=== PATIENT | female | born 1955 | race Caucasian/White ===

== ENCOUNTER 2017-02-02 05:09 | Inpatient (IN) | payer MEDICARE ==
[~2017-02-02] VITALS: Ht 172.7 cm; Wt 106.8 kg
[~2017-02-02 05:09] MED LIST: BACL-19 PO; BUPR-86 PO; CEPH-368 PO; DIAZ5TAB PO; DIAZ5TAB4 PO; DIPH25CA61 PO; ESTR1TAB15 PO; FLUO20CA19 PO; GABA100C8 PO; HYDR2TAB13 PO; IBUP-1222 PO; LORA10TA75 PO; METH4TAB2 PO; METH750T87 PO; MORP15TA39 PO; MULT-658 PO; OXYC-229 PO; OXYC1TAB9 PO; SULF1TAB3 PO; VITA400C40 PO; testosterone PO; vitamin a PO
[2017-02-02] MEDS ORDERED: OXYC10TA6 PO (05:25)
[2017-02-02] MEDS ORDERED: SODIUM CHLORIDE FLUSH 10ML SYR IVF ONE (06:00)
[2017-02-02] MEDS ORDERED: SODIUM CHLORIDE 0.9% 1,000ML IVBOLUS ONE (06:00)
[2017-02-02] MEDS ORDERED: DIAZEPAM 5 MG TABLET PO ONE (06:00)
[2017-02-02 06:25] LABS: ACETAMINOPHEN < 2 mcg/mL (10-30); ASPARTATE AMINO TRANSFERASE 32 U/L (15-37); BLOOD UREA NITROGEN 17 mg/dL (7-18)
[2017-02-02 07:21] LABS: DAU SCREEN DISCLAIMER
[2017-02-02] MEDS ORDERED: SODIUM CHLORIDE 0.9% 1,000 ML IV SCH (10:29)
[2017-02-02] MEDS ORDERED: ACETAMINOPHEN 650 MG/20.3 ML UDC PO PRN (10:30)
[2017-02-02] MEDS ORDERED: DOCUSATE CALCIUM 240 MG CAPSULE PO PRN (10:30)
[2017-02-02] MEDS ORDERED: LORazepam 2 MG/ML, 1ML IVPush PRN (11:00)
[2017-02-02] MEDS ORDERED: KETOROLAC 30 MG/1 ML IVPush PRN (11:00)
[2017-02-02] MEDS ORDERED: OXYcodone IR 5MG TABLET PO PRN (11:00)
[2017-02-02] MEDS: ASPIRIN 81 MG TABLET EC PO SCH (11:55)
[2017-02-02] MEDS: BUPROPION 75 MG TABLET PO SCH ×2 (11:55→21:22)
[2017-02-02] MEDS: ENOXAPARIN 40 MG/0.4 ML SQ SCH (11:56)
[2017-02-02] MEDS: OXYcodone/APAP 10/325MG TABLET PO PRN ×2 (11:56→21:21)
[2017-02-02 12:24] VITALS: BP 117/84
[2017-02-02 12:46] VITALS: BP 144/85
[2017-02-02] MEDS: GABAPENTIN 300 MG CAPSULE PO SCH ×2 (16:06→21:21)
[2017-02-02] MEDS: DIAZEPAM 5 MG TABLET PO PRN (16:07)
[2017-02-02 19:47] VITALS: BP 132/72
[2017-02-02] MEDS ORDERED: BACLOFEN 10 MG TABLET PO PRN (21:00)
[2017-02-02] MEDS ORDERED: BACLOFEN 10 MG TABLET PO SCH (21:00)
[2017-02-02] MEDS: SIMVASTATIN 10 MG TABLET PO SCH (21:22)
[2017-02-03] MEDS: OXYcodone/APAP 10/325MG TABLET PO PRN ×2 (01:34→13:55)
[2017-02-03 02:24] VITALS: BP 119/73
[2017-02-03 06:14] LABS: ASPARTATE AMINO TRANSFERASE 21 U/L (15-37); BLOOD UREA NITROGEN 12 mg/dL (7-18)
[2017-02-03 06:30] VITALS: BP 132/81
[2017-02-03] MEDS ORDERED: DIAZEPAM 10 MG TABLET ONE (09:15)
[2017-02-03] MEDS: ENOXAPARIN 40 MG/0.4 ML SQ SCH (09:20)
[2017-02-03] MEDS: BUPROPION 75 MG TABLET PO SCH ×2 (09:20→21:06)
[2017-02-03] MEDS: ASPIRIN 81 MG TABLET EC PO SCH (09:20)
[2017-02-03] MEDS: GABAPENTIN 300 MG CAPSULE PO SCH ×3 (09:20→21:06)
[2017-02-03] MEDS: DIAZEPAM 5 MG TABLET PO PRN (09:21)
[2017-02-03 12:46] VITALS: BP 115/72
[2017-02-03 19:31] VITALS: BP 142/81
[2017-02-03] MEDS: SIMVASTATIN 10 MG TABLET PO SCH (21:06)
[2017-02-04 01:26] VITALS: BP 158/60
[2017-02-04 06:45] VITALS: BP 147/82
[2017-02-04] MEDS ORDERED: DIAZ5TAB4 PO (09:25)
[2017-02-04] MEDS ORDERED: BACL-19 PO (09:25)
[2017-02-04] MEDS ORDERED: OXYC-229 PO (09:25)
[2017-02-04] MEDS: ENOXAPARIN 40 MG/0.4 ML SQ SCH (10:18)
[2017-02-04] MEDS: GABAPENTIN 300 MG CAPSULE PO SCH ×3 (10:18→20:06)
[2017-02-04] MEDS: BUPROPION 75 MG TABLET PO SCH ×2 (10:18→20:06)
[2017-02-04] MEDS: ASPIRIN 81 MG TABLET EC PO SCH (10:18)
[2017-02-04 12:40] VITALS: BP 139/75
[2017-02-04 19:05] VITALS: BP 136/83
[2017-02-04] MEDS: SIMVASTATIN 10 MG TABLET PO SCH (20:06)
[2017-02-05 02:07] VITALS: BP 120/72
[2017-02-05 07:32] VITALS: BP 152/92
[2017-02-05] MEDS: BUPROPION 75 MG TABLET PO SCH (07:47)
[2017-02-05] MEDS: GABAPENTIN 300 MG CAPSULE PO SCH (07:47)
[2017-02-05] MEDS: ASPIRIN 81 MG TABLET EC PO SCH (07:47)
[2017-02-05] MEDS: ENOXAPARIN 40 MG/0.4 ML SQ SCH (07:50)
[2017-02-05] MEDS ORDERED: DIAZEPAM 10 MG TABLET ONE (10:38)
[2017-02-05] MEDS: DIAZEPAM 5 MG TABLET PO PRN (10:41)
[2017-02-05] MEDS ORDERED: FLUOXETINE 20 MG CAPSULE PO SCH (12:30)
[2017-02-05] MEDS ORDERED: BUPR75TA6 PO (13:24)
[2017-02-05] MEDS ORDERED: FLUO20CA8 PO (13:24)
[2017-02-06] MEDS ORDERED: BUPROPION 75 MG TABLET PO SCH (09:00)
== END 2017-02-05 14:57 | disposition home or self-care (01) | DRG 92 ==
LOC: ED 07:26 → EDIP 09:18 → 4EST 10:40
PROVIDERS: ADMIT Family Medicine; ATTEND Family Medicine
DX: R47.01 Aphasia (principal); F33.1 Major depressive disorder, recurrent, moderate; E44.0 Moderate protein-calorie malnutrition; M54.9 Dorsalgia, unspecified; M54.2 Cervicalgia; E66.9 Obesity, unspecified; F45.9 Somatoform disorder, unspecified; G89.29 Other chronic pain; M21.371 Foot drop, right foot; M41.9 Scoliosis, unspecified; R29.6 Repeated falls; R32 Unspecified urinary incontinence; R33.9 Retention of urine, unspecified; Z66 Do not resuscitate; Z81.8 Family history of other mental and behavioral disorders; Z68.35 Body mass index [BMI] 35.0-35.9, adult; Z82.49 Family history of ischemic heart disease and other diseases of the circulatory system; Z90.89 Acquired absence of other organs; T40.605A Adverse effect of unspecified narcotics, initial encounter
CPT/HCPCS: 36415; 70450; 70553; 71010; 72110; 80053; 80061; 80307; 80329; 81003; 84443; 85025; 85651; 86140; 93005; 93306; 93880; 96360; 96361; 96372; J1650; 92523-GN; G0480; J7030

== ENCOUNTER 2017-02-07 08:41 | Emergency (ER) | payer MEDICARE ==
[~2017-02-07] VITALS: Ht 172.7 cm; Wt 103.4 kg
[~2017-02-07 08:41] MED LIST changes: +BUPR75TA6 PO; +FLUO20CA8 PO; +OXYC10TA6 PO
[2017-02-07] MEDS ORDERED: SODIUM CHLORIDE FLUSH 10ML SYR IVF ONE (09:30)
[2017-02-07] MEDS ORDERED: MORPHINE SULFATE 4 MG/ML, 1ML IVPush PRN (09:30)
[2017-02-07] MEDS ORDERED: SODIUM CHLORIDE 0.9% 1,000ML IV ONE (09:30)
[2017-02-07] MEDS ORDERED: LORazepam 2 MG/ML, 1ML IVPush ONE (09:30)
[2017-02-07] MEDS ORDERED: ONDANSETRON 2MG/ML, 2ML IVPush ONE (09:30)
[2017-02-07] MEDS ORDERED: KETOROLAC 30 MG/1 ML IVPush ONE (09:30)
[2017-02-07 09:47] LABS: BLOOD UREA NITROGEN 18 mg/dL (7-18)
[2017-02-07] MEDS ORDERED: MORPHINE SULFATE 4 MG/ML, 1ML ONE (09:49)
[2017-02-07] MEDS ORDERED: KETOROLAC 30 MG/1 ML ONE (09:49)
[2017-02-07] MEDS ORDERED: ONDANSETRON 2MG/ML, 2ML ONE (09:49)
[2017-02-07] MEDS ORDERED: LORazepam 2 MG/ML, 1ML ONE (09:50)
[2017-02-07 10:54] VITALS: BP 158/82
== END 2017-02-07 10:58 | disposition home or self-care (01) ==
LOC: ED 10:52
DX: S39.012A Strain of muscle, fascia and tendon of lower back, initial encounter (principal); F11.23 Opioid dependence with withdrawal; X50.9XXA Other and unspecified overexertion or strenuous movements or postures, initial encounter; Y93.89 Activity, other specified; Y92.89 Other specified places as the place of occurrence of the external cause; Y99.8 Other external cause status
CPT/HCPCS: 36415; 80048; 80307; 82040; 85025; 96361; 96374; 96375; 99285; J1885; J2060; J2405; J7030

== ENCOUNTER → 2017-05-08 | Outpatient (CLI) | payer MEDICARE ==
[~2017-05-08] MED LIST changes: +GABA-826 PO; -GABA100C8 PO; -HYDR2TAB13 PO; +HYDR2TAB29 PO; +MORP-52 PO; -MORP15TA39 PO; -VITA400C40 PO; +VITA400C43 PO
[2017-05-08 16:10] LABS: HIV 1&2 ANTIBODY SCREEN Nonreactive (Nonreactive); HIV-1 p24 ANTIGEN Nonreactive (Nonreactive)
[2017-05-08 20:00] LABS: HEPATITIS C VIRUS ANTIBODY Nonreactive (Nonreactive)
== END | disposition home or self-care (01) ==
LOC: CFH 11:42
PROVIDERS: ATTEND Student in an Organized Health Care Education/Training Program
DX: Z11.3 Encounter for screening for infections with a predominantly sexual mode of transmission (principal)
CPT/HCPCS: 36415; 86592; 86703; 86803; 87340; 87899; G0435

== ENCOUNTER → 2017-06-30 | Outpatient (CLI) | payer MEDICARE, MEDICAID ==
[~2017-06-30] MED LIST changes: -OXYC-229 PO; +OXYC-307 PO; +SULF-169 PO; -SULF1TAB3 PO
== END | disposition home or self-care (01) ==
LOC: CFH 13:52
PROVIDERS: ATTEND Neurological Surgery
DX: M51.36 Other intervertebral disc degeneration, lumbar region (principal); M47.896 Other spondylosis, lumbar region; M41.86 Other forms of scoliosis, lumbar region; M48.06 Spinal stenosis, lumbar region; Z98.1 Arthrodesis status; Z98.890 Other specified postprocedural states
CPT/HCPCS: 72100

== ENCOUNTER 2017-07-18 12:22 | Emergency (ER) | payer MEDICARE, MEDICAID ==
[~2017-07-18] VITALS: Ht 172.7 cm; Wt 105.8 kg
[2017-07-18] MEDS ORDERED: ONDANSETRON ODT 4 MG ONE (13:11)
[2017-07-18] MEDS ORDERED: HYDROmorphone 1 MG/ML, 1ML ONE (13:11)
[2017-07-18] MEDS ORDERED: ONDANSETRON ODT 4 MG PO ONE (13:30)
[2017-07-18] MEDS ORDERED: HYDROmorphone 1 MG/ML, 1ML IM ONE (13:30)
[2017-07-18 14:24] LABS: HEMATOCRIT 42.9 % (34.6-47.8); HEMOGLOBIN 14.5 g/dL (11.7-16.4); WHITE BLOOD COUNT 6.4 x10^3/uL (3.4-10)
[2017-07-18 14:33] LABS: BLOOD UREA NITROGEN 17 mg/dL (7-18)
[2017-07-18 14:44] LABS: ASPARTATE AMINO TRANSFERASE 51 U/L (15-37)
[2017-07-18 15:16] VITALS: BP 168/80
[2017-07-18] MEDS ORDERED: METHYLNALTREXONE 12 MG/0.6 ML SQ ONE (15:30)
== END 2017-07-18 15:56 | disposition home or self-care (01) ==
LOC: ED 12:46
DX: K59.00 Constipation, unspecified (principal)
CPT/HCPCS: 36415; 76700; 80053; 83690; 85025; 96372; 99285; J1170; Q0162

== ENCOUNTER → 2017-10-23 | Outpatient (CLI) | payer MEDICARE, MEDICAID | LOC: CFH 12:19 | PROVIDERS: ATTEND Nurse Practitioner | DX: Z02.9 Encounter for administrative examinations, unspecified (principal) ==

== ENCOUNTER → 2017-10-27 | Outpatient (CLI) | payer MEDICARE, MEDICAID | END | disposition home or self-care (01) | LOC: CFH 11:18 | PROVIDERS: ATTEND Nurse Practitioner | DX: M25.771 Osteophyte, right ankle (principal); M25.472 Effusion, left ankle ==

== ENCOUNTER 2018-02-27 06:19 | Emergency (ER) | payer MEDICARE, MEDICAID ==
[~2018-02-27] VITALS: Ht 175.3 cm; Wt 105.8 kg
[2018-02-27] MEDS ORDERED: KETOROLAC 30 MG/1 ML ONE (06:53)
[2018-02-27] MEDS ORDERED: MORPHINE SULFATE 4 MG/ML, 1ML ONE (06:54)
[2018-02-27 07:00] LABS: CULTURE INDICATED? YES; MICROSCOPIC INDICATED
[2018-02-27] MEDS ORDERED: KETOROLAC 30 MG/1 ML IVPush ONE (07:00)
[2018-02-27] MEDS ORDERED: SODIUM CHLORIDE FLUSH 10ML SYR IVF ONE (07:00)
[2018-02-27] MEDS ORDERED: MORPHINE SULFATE 4 MG/ML, 1ML IVPush PRN (07:00)
[2018-02-27 07:37] LABS: BASOPHILS # (AUTO) 0.03 x10^3/uL (0-0.1); BASOPHILS % (AUTO) 1 % (0-1); EOSINOPHILS # (AUTO) 0.08 x10^3/uL (0-0.4); EOSINOPHILS % (AUTO) 2 % (1-7); LYMPHOCYTES # (AUTO) 1.21 x10^3/uL (1-3.4); LYMPHOCYTES % (AUTO) 28 % (22-44); MD NO; MEAN CORPUSCULAR VOLUME 88.1 fL (80-100); MEAN PLATELET VOLUME 7.5 fL (7.4-10.4); MONOCYTES # (AUTO) 0.31 x10^3/uL (0.2-0.8); MONOCYTES % (AUTO) 7 % (2-9); NEUTROPHILS # (AUTO) 2.77 x10^3/uL (1.8-6.8); NEUTROPHILS % (AUTO) 63 % (42-75); PLATELET COUNT 214 x10^3/uL (130-400); RED BLOOD COUNT 4.94 x10^6/uL (3.82-5.3); RED CELL DISTRIBUTION WIDTH 12.9 % (9.6-15.2)
[2018-02-27 07:50] LABS: ALANINE AMINOTRANSFERASE 26 U/L (12-78); ALBUMIN 3.5 g/dL (3.4-5.0); ANION GAP 8 mmol/L (5-15); CALCIUM 8.7 mg/dL (8.5-10.1); CHLORIDE 111 mmol/L (98-107); CREATININE 1.03 mg/dL (0.55-1.02)
[2018-02-27 07:52] LABS: ALKALINE PHOSPHATASE 93 U/L (45-117); BILIRUBIN,TOTAL 0.4 mg/dL (0.2-1.0); TOTAL PROTEIN 6.5 g/dL (6.4-8.2)
[2018-02-27 09:42] VITALS: BP 145/67
[2018-02-27] MEDS ORDERED: OXYcodone/APAP 10/325MG TABLET PO ONE (10:00)
[2018-02-27] MEDS ORDERED: OXYcodone/APAP 10/325MG TABLET ONE (10:10)
== END 2018-02-27 10:29 | disposition home or self-care (01) ==
LOC: ED 09:26
DX: R10.32 Left lower quadrant pain (principal); I11.9 Hypertensive heart disease without heart failure; M19.90 Unspecified osteoarthritis, unspecified site
CPT/HCPCS: 36415; 74176; 80053; 81001; 83690; 85025; 87086; 96374; 96375; 99285; J1885

== ENCOUNTER 2018-03-07 08:11 | Emergency (ER) | payer MEDICARE, MEDICAID ==
[~2018-03-07] VITALS: Ht 175.3 cm; Wt 106.2 kg
[2018-03-07 08:17] VITALS: BP 155/93
[2018-03-07] MEDS ORDERED: DIAZEPAM 5 MG TABLET ONE (09:16)
[2018-03-07] MEDS ORDERED: KETOROLAC 30 MG/1 ML ONE (09:16)
[2018-03-07] MEDS ORDERED: DIAZEPAM 5 MG TABLET PO ONE (09:30)
[2018-03-07] MEDS ORDERED: KETOROLAC 30 MG/1 ML IM ONE (09:30)
== END 2018-03-07 09:56 | disposition home or self-care (01) ==
LOC: ED 09:30
DX: S50.11XA Contusion of right forearm, initial encounter (principal); S80.01XA Contusion of right knee, initial encounter; M51.36 Other intervertebral disc degeneration, lumbar region; G89.29 Other chronic pain; W01.0XXA Fall on same level from slipping, tripping and stumbling without subsequent striking against object, initial encounter; Y93.01 Activity, walking, marching and hiking; Y92.098 Other place in other non-institutional residence as the place of occurrence of the external cause; Y99.8 Other external cause status
CPT/HCPCS: 72110; 73090; 73564; 96372; 99284; J1885

== ENCOUNTER 2019-01-17 10:25 | Emergency (ER) | payer MEDICARE, MEDICAID ==
[~2019-01-17] VITALS: Ht 175.3 cm; Wt 114.2 kg
[~2019-01-17 10:25] MED LIST changes: +OXYC-432 PO; -OXYC1TAB9 PO
[2019-01-17 10:40] VITALS: BP 158/83
--- NOTE | 2019-01-17 10:52 | NUR ---
to room 09
[2019-01-17] MEDS ORDERED: DEXAMETHASONE 4 MG/ML, 5ML ONE (11:22)
[2019-01-17] MEDS ORDERED: DEXAMETHASONE 4 MG/ML, 1ML PO ONE (11:30)
== END 2019-01-17 12:17 | disposition home or self-care (01) ==
LOC: ED 10:51
DX: B34.9 Viral infection, unspecified (principal); I11.9 Hypertensive heart disease without heart failure; M19.90 Unspecified osteoarthritis, unspecified site; M54.9 Dorsalgia, unspecified; G89.29 Other chronic pain
CPT/HCPCS: 71046; 87081; 87880; 99284; J1100

== ENCOUNTER 2019-04-16 15:30 | Emergency (ER) | payer MEDICARE, MEDICAID ==
[~2019-04-16] VITALS: Ht 172.7 cm; Wt 108.3 kg
[2019-04-16 15:37] VITALS: BP 147/77
== END 2019-04-16 17:45 | disposition home or self-care (01) ==
LOC: ED 16:40
DX: S39.012A Strain of muscle, fascia and tendon of lower back, initial encounter (principal); S29.012A Strain of muscle and tendon of back wall of thorax, initial encounter; M51.34 Other intervertebral disc degeneration, thoracic region; M51.36 Other intervertebral disc degeneration, lumbar region; G89.29 Other chronic pain; I11.9 Hypertensive heart disease without heart failure; M19.90 Unspecified osteoarthritis, unspecified site; M43.26 Fusion of spine, lumbar region; X58.XXXA Exposure to other specified factors, initial encounter; Y93.89 Activity, other specified; Y92.89 Other specified places as the place of occurrence of the external cause; Y99.8 Other external cause status
CPT/HCPCS: 72080; 99283

== ENCOUNTER 2019-10-23 15:26 | Emergency (ER) | payer MEDICAID, MEDICARE ==
[~2019-10-23] VITALS: Ht 175.3 cm; Wt 98.1 kg
[~2019-10-23 15:26] MED LIST changes: +FLUO40CA9 PO; +LOSA25TA25 PO
[2019-10-23 15:30] VITALS: BP 140/95
--- NOTE | 2019-10-23 15:54 | NUR ---
pt ambulatory to ed. c/o pain in RLE, outer bottom part fibula down to lateral malleolus. pain on palpation at first, on second time pt denies pain. sts has peripheral neuropathy top of R foot r/t sciatica and numbness is worse than normal today. "it came out of nowhere when i was walking". denies trauma/falls. no hx osteoporosis. 06/15 crushing pain unrelieved by half a percocet she took at home. pedal pulses 1+ bilat, cap refill less than 2 sec. pt appears anxious, moving hands and feet a lot. sts she feels anxious. denies hx blood clot, smoking. c/o pain on walking/moving. call gm in reach, vss, awaiting md. as
== END 2019-10-23 17:00 | disposition home or self-care (01) ==
LOC: ED 16:28
DX: S86.211A Strain of muscle(s) and tendon(s) of anterior muscle group at lower leg level, right leg, initial encounter (principal); I10 Essential (primary) hypertension; M19.90 Unspecified osteoarthritis, unspecified site; G89.29 Other chronic pain; X58.XXXA Exposure to other specified factors, initial encounter; Y93.89 Activity, other specified; Y92.89 Other specified places as the place of occurrence of the external cause; Y99.8 Other external cause status
CPT/HCPCS: 99283

== ENCOUNTER → 2019-11-24 | Outpatient (CLI) | payer MEDICARE, MEDICAID ==
[~2019-11-24] MED LIST changes: +FLUO20CA23 PO; -FLUO20CA8 PO
== END | disposition home or self-care (01) ==
LOC: CFH 09:52
PROVIDERS: ATTEND Nurse Practitioner
DX: M47.812 Spondylosis without myelopathy or radiculopathy, cervical region (principal); M51.36 Other intervertebral disc degeneration, lumbar region; M48.07 Spinal stenosis, lumbosacral region; G95.89 Other specified diseases of spinal cord; M77.8 Other enthesopathies, not elsewhere classified
CPT/HCPCS: 72040; 72120

== ENCOUNTER 2020-05-16 13:50 | Emergency (ER) | payer MEDICARE, MEDICAID ==
[~2020-05-16] VITALS: Ht 177.8 cm; Wt 97.2 kg
[2020-05-16 14:29] VITALS: BP 145/82
--- NOTE | 2020-05-16 14:39 | NUR ---
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
[2020-05-16] MEDS ORDERED: KETOROLAC 30 MG/1 ML IM ONE (16:00)
[2020-05-16] MEDS ORDERED: KETOROLAC 60 MG/2 ML ONE (16:11)
== END 2020-05-16 16:40 | disposition home or self-care (01) ==
LOC: ED 16:00
DX: M54.5 Low back pain (principal); M54.2 Cervicalgia; I10 Essential (primary) hypertension
CPT/HCPCS: 96372; 99283; J1885